=== PATIENT | male | born 1970 | race Caucasian/White ===

== ENCOUNTER 2021-12-01 16:52 | Outpatient (RCR) | payer BC, SELFPAY ==
--- NOTE | 2021-12-01 17:48 | PTOPEVAL1 ---
Assessment and note entered by JT File, PT Evaluation Information Assessment Status Evaluation Diagnosis bilateral shoulder pain, R worse than L Onset 11/29/21 Subjective Information patient reports he has been having pain for more than a month. he reports he sleeps on his side at night. he reports he attirbuted his pain/soreness to age related changes. however, he reports he now is unable to lift over head with the R more than the L. he reports he he is unable to lift anything over his head on the R. he reports he has more difficulty on the L with lifting his elbow to his side. he reports no imaging and no medications given by MD. he reports he does work he does work at the [employer] in [place]. he reports he is using his arms all day. he reports the heaviest weight is 30lbs or so that he is sliding from side to side with his arms. patient reports he is still worknig, but he has pain and it does make him change his mechanics. Reported Pain Level Pain Score 6,2: Self Report Assessment PT Clinical Summary mr. miranda presents to skilled PT services for evaluation and treatment of pain in the R more than L shoulders. 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 he would do well to continue skilled PT to improve his objective/ functional deficits and progress towards a return to his prior level functional activity performance /quality of life. Plan of Care Interventions Electrical Stimulation,Hot Pack/Cold Pack,Manual Therapy,Patient/Caregiver Educati,Therapeutic Activities,Therapeutic Exercise PT Services Indicated Yes Treatment Frequency and 3x weekly for 12 visits Duration These treatments will address the objective and functional deficits as defined above. The patient will be advanced safely and appropriately in order for the patient to progress towards his/her prior level of function. Additional exercises will be introduced and as well as a comprehensive home exercise program upon discharge, if needed, ?to ensure carryover of functional gains achieved in the clinic. This treatment plan has been reviewed and agreement upon by the patient.
== END 2022-01-02 13:40 | disposition home or self-care (01) ==
LOC: CHSPT 16:52
PROVIDERS: Visit Provider Family Medicine
DX: M25.512 Pain in left shoulder (principal); M25.511 Pain in right shoulder
CPT/HCPCS: 97014; 97110; 97140; 97161; G0283